=== PATIENT | female | born 1980 | race Caucasian/White ===

== ENCOUNTER → 2017-04-10 | Outpatient (CLI) | payer MEDICAID ==
--- NOTE | ~2017-04-10 | MR112 ---
[facility] A Service of [facility] & [facility] RADIOLOGY TEXT RESULTS PATIENT: KIESHA MERCADO LOCATION: [facility] : [birth year] UNIT #: [id number] AGE: [address]: Shanta Khan SEX: F ORDER DR: [id number] [address] [address] [id number] O MR#: [id number] Acc #: [id number] NAME: KIESHA MERCADO : 1980 SEX: F STUDY DATE/TIME: 04/10/2017 11:44 UNIT: [facility] ROOM: STUDY DESCRIPTION: MR Lumbar WWo Contrast Attending Physician: Shanta Khan A.P.R.N. Referring Physician: Shanta Khan A.P.R.N. Ordering Physician: Shanta Khan A.P.R.N. Primary Care Physician: Shanta Khan A.P.R.N. MRI CENTER REPORT This report is preliminary unless electronic signature is present. EXAM MRI of the lumbar spine with and without contrast, 04/10/2017. COMPARISON MRI of the lumbar spine without contrast, 10/29/2013. HISTORY Low back pain with bilateral lower extremity radiculopathy. Patient had surgery in January 2014 and there are still symptoms for the last 3 years. TECHNIQUE Multisequence, multiplanar imaging of the lumbar spine was obtained with and without contrast. 20 mL of MultiHance were administered intravenously. FINDINGS Vertebral body heights and alignment are preserved. Degenerative disc disease is at L4-L5 and L5-S1. The conus terminates at L1-L2. Signals of the conus and cauda equina are within normal limits. Pre- and paravertebral soft tissues do not demonstrate any significant abnormality. Postoperative mild changes are noted at L4-L5, with right hemilaminectomy. Correlate with operative note. No significant drainable fluid collection is noted in the postoperative bed. Retroperitoneal is unremarkable. L1-L2, L2-L3: Mild bilateral facet changes, but otherwise unremarkable. L4-L5: Status post right hemilaminectomy. Previously noted large disc extrusion has been removed in the interval with significant improvement in the mass effect on the thecal sac. Mild enhancing soft tissue is noted in the central to right subarticular region, likely postoperative granular tissue. There is residual disc bulge noted with mild inferior bilateral STS. [facility] A Service of [facility] & [facility] RADIOLOGY TEXT RESULTS PATIENT: KIESHA MERCADO LOCATION: [facility] : 80 UNIT #: [id number] AGE: [address]: Shanta Khan SEX: F ORDER DR: neural foraminal encroachment without significant nerve impingement. L5-S1: Concentric disc bulge with small superimposed [id number] central protrusion. No canal stenosis. Mild inferior left neural foraminal encroachment is seen without any significant nerve impingement. Relatively stable. IMPRESSION 1. Status post right hemilaminectomy at L4-L5 with interval removal of the large disc extrusion. Thecal sac is widely patent, with significant improvement post surgery. Remaining portions of the disc bulge are again seen with mild inferior bilateral neural foraminal narrowing, without significant nerve impingement. Neural foraminal appearance is stable. 2. No significant interval worsening in the other levels, when compared to the prior study from 3 years ago. Dictated by... Kareen Edwards M.D. THIS IS AN ELECTRONICALLY VERIFIED REPORT Kareen Edwards M.D. at 04/11/2017 4:29 PM EMI/valentin TD: 04/11/2017 11:59 JOB #: [id number] MRI CENTER REPORT Page 1 of 1
== END | disposition home or self-care (01) ==
LOC: SMRI 11:03
DX: M48.06 Spinal stenosis, lumbar region (principal); M51.16 Intervertebral disc disorders with radiculopathy, lumbar region; Z98.890 Other specified postprocedural states
CPT/HCPCS: 72158; A9581